=== PATIENT | female | born 1960 | race Caucasian/White ===

== ENCOUNTER → 2017-03-25 | Outpatient (REF) | payer BC ==
[~2017-03-25] MED LIST: ALP5 PO; ALPR-429 PO; CALC-476 PO; ESTR0.62 PO; HYDR-2966 PO; IBU800 PO; KET10 PO; LOR5/325 PO; MAX75 PO; MULT1CAP41 PO; PER PO; TRIA-20 PO
== END ==
LOC: ZZSENDIN 17:18
PROVIDERS: ATTEND Urology
DX: N39.0 Urinary tract infection, site not specified (principal); R50.9 Fever, unspecified; J11.1 Influenza due to unidentified influenza virus with other respiratory manifestations
CPT/HCPCS: 81001; 87088

== ENCOUNTER → 2017-06-26 | Outpatient (CLI) | payer BC | LOC: LAB 10:18 | PROVIDERS: ATTEND Urology | DX: N39.0 Urinary tract infection, site not specified (principal); B96.20 Unspecified Escherichia coli [E. coli] as the cause of diseases classified elsewhere | CPT/HCPCS: 81001; 87077; 87088; 87186 ==